=== PATIENT | female | born 1985 | race Hispanic/Latino ===

== ENCOUNTER 2016-11-21 17:46 | Inpatient (IN) | payer BC ==
[2016-11-21] MEDS ORDERED: LACTATED RINGERS 500 ML IV ONE (18:13)
[2016-11-21 21:13] LABS: Bacteria,Urine 1+ /HPF (Negative); Bilirubin,Urine NEG (Negative); Blood,Urine NEG (Negative); Ketones,Urine NEG (Negative); Leukocyte Esterase,Urine NEG (Negative); Mucus,Urine FEW /HPF; Nitrite,Urine NEG (Negative); Protein,Urine <15 mg/dL mg/dL (Negative); Urobilinogen,Urine < 2.0 mg/dL (<2.0); WBC,Urine < 1.0 /HPF (0.0-6.0)
[2016-11-21] MEDS ORDERED: MAGNESIUM SULFATE 4GM/100ML 4 GM/100 ML BAG IV ONE (22:06)
[2016-11-21] MEDS ORDERED: AMBIEN PO PRN (22:06)
[2016-11-21] MEDS ORDERED: MAGNESIUM SULFATE 40GM/1000ML 40 GM/1,000 ML BAG IV SCH (23:00)
[2016-11-21 23:08] LABS: HIV-1 Antigen p24 Non React (Non React); HIVR-1/2 Ab Non React (Non React)
[2016-11-21] MEDS ORDERED: ZOFRAN IV PRN (23:09)
[2016-11-21 23:12] LABS: Hematocrit 34.6 % (30.3-42.9); Hemoglobin 11.2 gm/dl (10.1-14.3); Mean Corpuscular HGB Conc 32 % (30-34); Mean Corpuscular Hemoglobin 28 pg (28-32); Mean Corpuscular Volume 88 fl (79-97); Platelet Count 196 K/mm3 (140-440); Red Blood Count 3.94 M/mm3 (3.65-5.03); White Blood Count 13.1 K/mm3 (4.5-11.0)
[2016-11-21] MEDS ORDERED: CELESTONE SOLUSPAN IM ONE (23:28)
[2016-11-22] MEDS ORDERED: TYLENOL PO PRN (08:59)
[2016-11-22] MEDS: PEPCID PO SCH ×2 (09:37→22:32)
[2016-11-22] MEDS: LACTATED RINGERS 1,000 ML IV SCH ×2 (12:20→22:37)
[2016-11-22] MEDS ORDERED: CELESTONE SOLUSPAN IM SCH ×2 (21:00→22:23)
[2016-11-22] MEDS ORDERED: AMBIEN PO PRN (22:43)
[2016-11-23] MEDS: LACTATED RINGERS 1,000 ML IV SCH (07:13)
--- NOTE | 2016-11-23 09:47 | History and Physical Report ---
History of Present Illness Date of examination: 11/21/16 Date of admission: 11/23/16 07:39 Chief complaint: I'm having contractions History of present illness: Patient is a 30 year old who was flying from [facility] to [place] and started having contractions on the plane. She then presented to [facility] and was found to be having regular contractions and was dilated to 1.5cm. Past History Past Medical History: no pertinent history Past Surgical History: no surgical history Social history: - Obstetrical History Expected Date of Delivery: 01/21/17 Actual Gestation: 31 Week(s) 4 Day(s) : 2 Number of Living Children: 1 Medications and Allergies Allergies Allergy/AdvReac Type Severity Reaction Status Date / Time nalbuphine HCl [From Nubain] Allergy Rash Verified 11/21/16 18:12 topiramate [From Topamax] Allergy Rash Verified 11/21/16 18:12 Home Medications Medication Instructions Recorded Confirmed Last Taken Type Pantoprazole [Protonix TAB] 20 mg PO PRN PRN 11/21/16 11/21/16 1 Month Ago History Active Meds: Active Medications Acetaminophen (Tylenol) 650 mg PO Q4H PRN PRN Reason: Pain, Mild (1-3) Last Admin: 11/22/16 10:17 Dose: 650 mg Betamethasone Acet/Betameth SodPhos (Celestone Soluspan) 12 mg IM Q24H JOSE ANTONIO Last Admin: 11/22/16 23:47 Dose: 12 mg Famotidine (Pepcid) 10 mg PO BID JOSE ANTONIO Last Admin: 11/22/16 22:32 Dose: 10 mg Lactated Ringer's (Lactated Ringers) 1,000 mls @ 125 mls/hr IV DIRECT JOSE ANTONIO Last Admin: 11/23/16 07:13 Dose: 125 mls/hr Magnesium Sulfate (Magnesium Sulfate 40gm/1000ml) 40 gm in 1,000 mls @ 50 mls/ hr IV DIRECT JOSE ANTONIO PRN Reason: 2 GM/HR Last Admin: 11/22/16 00:05 Dose: 2 gm/hr, 50 mls/hr Ondansetron HCl (Zofran) 4 mg IV Q8H PRN PRN Reason: Nausea And Vomiting Zolpidem Tartrate (Ambien) 5 mg PO QHS PRN PRN Reason: Sleep Last Admin: 11/22/16 22:52 Dose: 5 mg Review of Systems All systems: negative Gastrointestinal: indigestion Genitourinary: contractions - Vital Signs Vital signs: Vital Signs Temp Resp 98.0 F 18 11/21/16 19:21 11/21/16 19:21 Temp Pulse Resp BP Pulse Ox 98.4 F 85 18 116/54 96 11/23/16 07:51 11/23/16 09:23 11/23/16 07:51 11/23/16 09:23 11/23/16 08:58 - Physical Exam Breasts: Positive: deferred Cardiovascular: Regular rate, Normal S1, Normal S2 Lungs: Positive: Clear to auscultation, Normal air movement Abdomen: Positive: normal appearance, soft, normal bowel sounds Genitourinary (Female): Positive: normal external genitalia Uterus: Positive: enlarged (gravid) - Obstetrical FHR: auscultation normal Cervical Dilatation: 1.5 Cervical Effacement Percentage: 50 station: -2 Uterine Contraction Frequency (min): 3-5 minutes Results Result Diagrams: 11/21/16 22:10 Abnormal lab results 11/22/16 Range/Units 12:35 Magnesium 6.00 H (1.7-2.3) mg/dL All other labs normal. Assessment and Plan IUP at 31+ weeks here with contractions and cervical dilation to 1.5. Will admit for steroids and magnesium tocolysis. Continue to monitor.
[2016-11-23 10:09] VITALS: BP 110/57
--- NOTE | 2016-11-23 10:35 | Progress Note ---
Assessment and Plan IUP at 31.4 weeks here with contractions. Patient is now stable and has not had contractions in more than 3 hours.Mag was discontinued last night.She has received 2 doses of steroids. Plan for discharge on today. Patient to follow up with her ob when she returns to [place]. Subjective - Subjective Date of service: 11/23/16 Principal diagnosis: labor Interval history: Patient is a 30 year old who was flying from [facility] to [place] and started having contractions on the plane. She then presented to [facility] and was found to be having regular contractions and was dilated to 1.5cm. Objective - Vital Signs Vital Signs: Vital Signs - 12hr 11/22/16 11/22/16 11/23/16 23:11 23:51 00:11 Temperature 98.0 F Pulse Rate 79 85 Respiratory 20 Rate Blood Pressure 108/56 111/60 Blood Pressure [Right] O2 Sat by Pulse Oximetry 11/23/16 11/23/16 11/23/16 01:11 01:59 02:04 Temperature Pulse Rate 86 88 95 H Respiratory Rate Blood Pressure 100/59 Blood Pressure [Right] O2 Sat by Pulse 97 97 Oximetry 11/23/16 11/23/16 11/23/16 02:09 02:11 02:14 Temperature Pulse Rate 85 91 H 96 H Respiratory Rate Blood Pressure 105/57 Blood Pressure [Right] O2 Sat by Pulse 96 96 Oximetry 11/23/16 11/23/16 11/23/16 02:19 02:24 02:29 Temperature Pulse Rate 93 H 90 96 H Respiratory Rate Blood Pressure Blood Pressure [Right] O2 Sat by Pulse 96 96 96 Oximetry 11/23/16 11/23/16 11/23/16 02:34 02:39 02:44 Temperature Pulse Rate 96 H 93 H 88 Respiratory Rate Blood Pressure Blood Pressure [Right] O2 Sat by Pulse 96 96 97 Oximetry 11/23/16 11/23/16 11/23/16 02:49 02:54 02:59 Temperature Pulse Rate 99 H 89 92 H Respiratory Rate Blood Pressure Blood Pressure [Right] O2 Sat by Pulse 97 97 97 Oximetry 11/23/16 11/23/16 11/23/16 03:04 03:09 03:34 Temperature Pulse Rate 86 79 87 Respiratory Rate Blood Pressure 119/59 Blood Pressure [Right] O2 Sat by Pulse 97 97 98 Oximetry 11/23/16 11/23/16 11/23/16 03:39 03:44 03:49 Temperature Pulse Rate 85 94 H 92 H Respiratory Rate Blood Pressure Blood Pressure [Right] O2 Sat by Pulse 98 99 99 Oximetry 11/23/16 11/23/16 11/23/16 03:54 03:59 04:04 Temperature Pulse Rate 94 H 80 86 Respiratory Rate Blood Pressure Blood Pressure [Right] O2 Sat by Pulse 99 99 99 Oximetry 11/23/16 11/23/16 11/23/16 04:09 04:12 04:14 Temperature Pulse Rate 80 80 92 H Respiratory Rate Blood Pressure 115/64 Blood Pressure [Right] O2 Sat by Pulse 99 99 Oximetry 11/23/16 11/23/16 11/23/16 04:19 04:24 04:29 Temperature Pulse Rate 91 H 87 87 Respiratory Rate Blood Pressure Blood Pressure [Right] O2 Sat by Pulse 99 99 99 Oximetry 11/23/16 11/23/16 11/23/16 04:34 04:39 04:44 Temperature Pulse Rate 89 94 H 94 H Respiratory Rate Blood Pressure Blood Pressure [Right] O2 Sat by Pulse 99 99 99 Oximetry 11/23/16 11/23/16 11/23/16 04:49 04:54 04:59 Temperature Pulse Rate 92 H 88 96 H Respiratory Rate Blood Pressure Blood Pressure [Right] O2 Sat by Pulse 99 98 98 Oximetry 11/23/16 11/23/16 11/23/16 05:04 05:09 05:12 Temperature Pulse Rate 93 H 91 H 86 Respiratory Rate Blood Pressure 112/60 Blood Pressure [Right] O2 Sat by Pulse 98 98 Oximetry 11/23/16 11/23/16 11/23/16 05:14 05:19 05:24 Temperature Pulse Rate 89 83 89 Respiratory Rate Blood Pressure Blood Pressure [Right] O2 Sat by Pulse 98 99 98 Oximetry 11/23/16 11/23/16 11/23/16 05:29 05:34 05:39 Temperature Pulse Rate 92 H 93 H 90 Respiratory Rate Blood Pressure Blood Pressure [Right] O2 Sat by Pulse 98 98 98 Oximetry 11/23/16 11/23/16 11/23/16 05:44 05:49 05:54 Temperature Pulse Rate 86 86 81 Respiratory Rate Blood Pressure Blood Pressure [Right] O2 Sat by Pulse 99 99 98 Oximetry 11/23/16 11/23/16 11/23/16 05:59 06:04 06:09 Temperature Pulse Rate 86 89 91 H Respiratory Rate Blood Pressure Blood Pressure [Right] O2 Sat by Pulse 98 98 99 Oximetry 11/23/16 11/23/16 11/23/16 06:12 06:23 06:28 Temperature Pulse Rate 88 106 H 81 Respiratory Rate Blood Pressure 111/66 Blood Pressure [Right] O2 Sat by Pulse 98 97 Oximetry 11/23/16 11/23/16 11/23/16 06:33 06:38 06:43 Temperature Pulse Rate 86 85 79 Respiratory Rate Blood Pressure Blood Pressure [Right] O2 Sat by Pulse 97 97 97 Oximetry 11/23/16 11/23/16 11/23/16 06:48 06:53 06:58 Temperature Pulse Rate 86 88 95 H Respiratory Rate Blood Pressure Blood Pressure [Right] O2 Sat by Pulse 97 97 97 Oximetry 11/23/16 11/23/16 11/23/16 07:02 07:03 07:08 Temperature 98.3 F Pulse Rate 94 H 83 Respiratory 20 Rate Blood Pressure Blood Pressure [Right] O2 Sat by Pulse 97 97 Oximetry 11/23/16 11/23/16 11/23/16 07:13 07:18 07:23 Temperature Pulse Rate 85 90 87 Respiratory Rate Blood Pressure 114/62 Blood Pressure [Right] O2 Sat by Pulse 97 97 96 Oximetry 11/23/16 11/23/16 11/23/16 07:28 07:33 07:38 Temperature Pulse Rate 85 81 87 Respiratory Rate Blood Pressure Blood Pressure [Right] O2 Sat by Pulse 96 95 95 Oximetry 11/23/16 11/23/16 11/23/16 07:43 07:48 07:51 Temperature 98.4 F Pulse Rate 89 83 95 H Respiratory 18 Rate Blood Pressure Blood Pressure 114/62 [Right] O2 Sat by Pulse 95 95 Oximetry 11/23/16 11/23/16 11/23/16 07:53 07:56 07:58 Temperature Pulse Rate 86 83 82 Respiratory Rate Blood Pressure 114/62 Blood Pressure [Right] O2 Sat by Pulse 98 98 Oximetry 11/23/16 11/23/16 11/23/16 08:03 08:08 08:11 Temperature Pulse Rate 92 H 86 84 Respiratory Rate Blood Pressure Blood Pressure [Right] O2 Sat by Pulse 97 97 93 Oximetry 11/23/16 11/23/16 11/23/16 08:13 08:18 08:20 Temperature Pulse Rate 83 86 87 Respiratory Rate Blood Pressure 100/54 Blood Pressure [Right] O2 Sat by Pulse 95 96 93 Oximetry 11/23/16 11/23/16 11/23/16 08:23 08:28 08:33 Temperature Pulse Rate 84 84 83 Respiratory Rate Blood Pressure Blood Pressure [Right] O2 Sat by Pulse 97 97 96 Oximetry 11/23/16 11/23/16 11/23/16 08:38 08:43 08:48 Temperature Pulse Rate 85 81 81 Respiratory Rate Blood Pressure Blood Pressure [Right] O2 Sat by Pulse 97 96 97 Oximetry 11/23/16 11/23/16 11/23/16 08:53 08:58 09:23 Temperature Pulse Rate 84 80 85 Respiratory Rate Blood Pressure 116/54 Blood Pressure [Right] O2 Sat by Pulse 97 96 Oximetry 11/23/16 10:11 Temperature Pulse Rate 96 H Respiratory Rate Blood Pressure 110/57 Blood Pressure [Right] O2 Sat by Pulse Oximetry - Exam Cardiovascular: Regular rate, Normal S1, Normal S2 Lungs: Clear to auscultation, Normal air movement Abdomen: Present: normal appearance, soft, normal bowel sounds Cervical Dilatation: 1.5 Cervical Effacement Percentage: 50 station: +1 Uterine Contraction Pattern: Absent - Labs Labs: Abnormal Labs 11/21/16 11/22/16 22:10 12:35 WBC 13.1 H RDW 13.0 L Magnesium 6.00 H Laboratory Results - last 24 hr 11/22/16 12:35 Magnesium 6.00 H
--- NOTE | 2016-11-23 10:38 | Discharge Summary ---
Providers - Providers Date of Admission: 11/23/16 07:39 Date of discharge: 11/23/16 Attending physician: LEONOR SWANSON Primary care physician: LEONOR SWANSON Hospitalization Reason for admission: labor Discharge diagnosis: other Hospital course: Stable Condition at discharge: Good Disposition: [id number] TO HOME OR SELFCARE Plan - Provider Discharge Summary Activity: routine, no heavy lifting 4 weeks, no strenuous exercise Diet: routine Instructions: routine Additional instructions: [] Smoking cessation referral if applicable(refer to patient education folder for contact #) [] Refer to [facility]'s [facility] Booklet Call your doctor immediately for: * Fever > 100.5 * Heavy vaginal bleeding ( >1 pad per hour) * Severe persistent headache * Shortness of breath * Reddened, hot, painful area to leg or breast * Drainage or odor from incision. * Keep incision clean and dry at all times and follow doctor's instructions regarding bathing/showering - Follow up plan Follow up: LEONOR SWANSON MD [Primary Care Provider] - 7 Days
[2016-11-23] MEDS: PEPCID PO SCH (10:52)
== END 2016-11-23 14:25 | disposition home or self-care (01) | DRG 778 ==
LOC: TRG 17:46 → LD 18:13 → OBSVTOIN 11-23 07:39
PROVIDERS: ADMIT Obstetrics & Gynecology; ATTEND Obstetrics & Gynecology
DX: O60.03 Preterm labor without delivery, third trimester (principal); Z3A.31 31 weeks gestation of pregnancy; Z88.8 Allergy status to other drugs, medicaments and biological substances
CPT/HCPCS: 36415; 81001; 83735; 85027; 86850; 86900; 86901; 87806; G0378; J0702; J3475; J7120